=== PATIENT | female | born 1995 | race African-American/Black ===

== ENCOUNTER 2020-11-18 09:13 | Emergency (ER) | payer SELFPAY ==
[~2020-11-18] VITALS: Ht 167.6 cm; Wt 54.5 kg
[2020-11-18 09:50] VITALS: BP 116/79
== END 2020-11-18 10:17 | disposition home or self-care (01) ==
LOC: EMS 09:13
DX: L60.0 Ingrowing nail (principal)
CPT/HCPCS: 99283; Z7502